=== PATIENT | male | born 1975 | race American Indian/Alaskan Native ===

== ENCOUNTER 2017-05-23 14:15 | Emergency (ER) | payer OTHER ==
[2017-05-23] MEDS ORDERED: FLEXERIL PO ONE (22:21)
[2017-05-23] MEDS ORDERED: MOTRIN PO ONE (22:21)
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
[2017-05-24 00:48] VITALS: BP 128/91
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
== END 2017-05-24 00:46 | disposition home or self-care (01) ==
LOC: ED 14:15
DX: M54.5 Low back pain (principal); F17.200 Nicotine dependence, unspecified, uncomplicated; V64.5XXA Driver of heavy transport vehicle injured in collision with heavy transport vehicle or bus in traffic accident, initial encounter; Y93.89 Activity, other specified; Y92.89 Other specified places as the place of occurrence of the external cause; Y99.8 Other external cause status
CPT/HCPCS: 70450; 72100; 72125